=== PATIENT | male | born 1965 | race Two or more races ===

== ENCOUNTER 2018-05-20 13:30 | Inpatient (IN) | payer BC ==
[~2018-05-20] VITALS: Ht 182.9 cm; Wt 93.0 kg
[2018-05-20 15:40] LABS: BASOPHIL % 0.3 % (0-2); PLATELET COUNT 316 x10^3mcL (130-400); RED CELL DISTRIBUTION WIDTH 13.1 % (11.5-14.5)
[2018-05-20 15:49] LABS: CALCIUM 8.9 mg/dL (8.5-10.1); CARBON DIOXIDE 25.6 mmol/L (21-32); CHLORIDE SERUM 104 mmol/L (98-107); CREATININE SERUM 0.9 mg/dL (0.7-1.3); GFR1 > 60 mL/min; GLUCOSE SERUM 153 mg/dL (74-106); SODIUM SERUM 140 mmol/L (136-145)
[2018-05-20 15:54] LABS: ALBUMIN 3.6 g/dL (3.4-5.0); ALKALINE PHOSPHATASE 81 U/L (46-116); ALT/SGPT 36 U/L (16-63); AST/SGOT 16 U/L (15-37); BILIRUBIN TOTAL 0.44 mg/dL (0.20-1.00); TOTAL PROTEIN, SERUM 7.2 g/dL (6.4-8.2)
[2018-05-20] MEDS ORDERED: METFORMIN HYDR500 M1 PO (16:31)
[2018-05-20] MEDS ORDERED: XANAX0.5 MG PO (16:32)
[2018-05-20] MEDS ORDERED: ATENOLOL50 MG PO (16:32)
[2018-05-20] MEDS ORDERED: ASPIRIN ADULT L81 M5 PO (16:33)
[2018-05-20] MEDS ORDERED: LIPI10 PO (16:33)
[2018-05-20 18:08] VITALS: BP 133/81
[2018-05-20] MEDS ORDERED: LIPI20 PO (19:48)
[2018-05-20 20:11] LABS: CHOLESTEROL/HDL RATIO 3.2
[2018-05-20 20:16] LABS: T3 TOTAL 1.31 ng/mL
[2018-05-20 20:19] LABS: FREE T4 0.81 ng/dL (0.76-1.46); T4(THYROXINE) 5.8 ug/dL (4.7-13.3)
[2018-05-20 20:51] VITALS: BP 110/74
[2018-05-20 22:04] LABS: microscopic required? NO
[2018-05-20 22:10] LABS: UA SPECIFIC GRAVITY >=1.030 (1.005-1.035); urine erythrocyte NEGATIVE (NEGATIVE)
[2018-05-20 22:35] LABS: AMPHETAMINE QUAL UR NONE DETECTED (See below)
[2018-05-21 05:27] VITALS: BP 139/93
[2018-05-21 06:43] LABS: BASOPHIL % 0.4 % (0-2); PLATELET COUNT 282 x10^3mcL (130-400); RED CELL DISTRIBUTION WIDTH 13.2 % (11.5-14.5)
[2018-05-21 07:00] LABS: CALCIUM 7.5 mg/dL (8.5-10.1); CARBON DIOXIDE 23.4 mmol/L (21-32); CHLORIDE SERUM 107 mmol/L (98-107); CREATININE SERUM 0.8 mg/dL (0.7-1.3); GFR1 > 60 mL/min; GLUCOSE SERUM 130 mg/dL (74-106); MAGNESIUM 1.6 mg/dL (1.8-2.4); PHOSPHOROUS 3.2 mg/dL (2.5-4.9); POTASSIUM SERUM 3.6 mmol/L (3.5-5.1); SODIUM SERUM 139 mmol/L (136-145)
[2018-05-21 09:00] VITALS: BP 130/91
[2018-05-21 13:35] VITALS: BP 132/76
[2018-05-21 17:15] VITALS: BP 132/99
[2018-05-21 19:29] VITALS: BP 125/80
[2018-05-22 06:07] VITALS: BP 113/76
[2018-05-22 06:21] LABS: BASOPHIL % 0.3 % (0-2); PLATELET COUNT 314 x10^3mcL (130-400)
[2018-05-22 06:51] LABS: CALCIUM 7.9 mg/dL (8.5-10.1); CARBON DIOXIDE 23.6 mmol/L (21-32); CHLORIDE SERUM 102 mmol/L (98-107); CREATININE SERUM 0.8 mg/dL (0.7-1.3); GFR1 > 60 mL/min; GLUCOSE SERUM 131 mg/dL (74-106); MAGNESIUM 2.3 mg/dL (1.8-2.4); SODIUM SERUM 137 mmol/L (136-145)
[2018-05-22 09:41] VITALS: BP 132/98
[2018-05-22 12:33] VITALS: BP 132/98
[2018-05-22 13:17] VITALS: BP 133/95
[2018-05-22] MEDS ORDERED: TOP50 PO (14:13)
[2018-05-22] MEDS ORDERED: IBUPROFEN400 MG PO (14:23)
== END 2018-05-22 15:25 | disposition home or self-care (01) | DRG 206 ==
LOC: ED 13:30 → DU 16:58
PROVIDERS: Emergency Medicine; Internal Medicine
DX: M94.0 Chondrocostal junction syndrome [Tietze] (principal); I10 Essential (primary) hypertension; I16.0 Hypertensive urgency; E78.5 Hyperlipidemia, unspecified; E11.65 Type 2 diabetes mellitus with hyperglycemia; E78.00 Pure hypercholesterolemia, unspecified
CPT/HCPCS: 82962; 83880; 84439; J1885; J2765; J3475; J7030; Q0092